=== PATIENT | female | born 1950 | race Caucasian/White ===

== ENCOUNTER 2017-01-07 16:03 | Emergency (ER) | payer OTHER ==
[~2017-01-07] VITALS: Wt 81.5 kg
[~2017-01-07 16:03] MED LIST: ASPI81TA3 PO; BENAZEPRIL PO; METOPROLOL PO; OMEPRAZOLE PO; SIMVASTATIN PO; SYNTHROID PO
[2017-01-07] MEDS ORDERED: AMOXICILLIN/CLAV 875 MG TAB PO ONE (16:30)
[2017-01-07] MEDS ORDERED: DIPHTH/TET/ACEL PERTUSS (ADULT) 0.5 ML VIAL IM* ONE (16:30)
--- NOTE | 2017-01-07 16:31 | ERD ---
ER Documentation Chief Complaint Date/Time DATE: 01/07/17 TIME: 16:29 Chief Complaint left hand swelling from dog bite yesterday with redness. no drainage noted HPI 66-year-old female who is right-hand dominant comes in with a left hand dog bite that occurred yesterday. Patient states that it she was on the history and it was a trauma that had bitten her on the back of her hand. She states that there is more swelling and redness today. She did wash the area with soap. Patient reports that her last tetanus shot was about 6 years ago. She has no difficulty with movement of the hand, she denies paresthesias. She denies fevers or chills. ROS All systems reviewed and are negative except as per history of present illness. Medications Home Meds Active Scripts Ibuprofen* (Motrin*) 600 Mg Tab, 600 MG PO Q6, #30 TAB Prov:YOVANY LEYVA PA-C 01/07/17 Amoxicillin/Potassium Clav (Amox-Clav 875-125 mg Tablet) 875-125 mg Tab, 1 TAB PO BID for 7 Days, #14 TAB Prov:YOVANY LEYVA PA-C 01/07/17 Reported Medications Aspirin (Aspirin) 81 Mg Chew, 81 MG PO DAILY, TAB.CHEW 12/01/13 [Omeprazole] No Conflict Check, PO DAILY 12/01/13 [Synthroid] No Conflict Check, PO DAILY 12/01/13 [Simvastatin] No Conflict Check, PO DAILY 12/01/13 [Benazepril] No Conflict Check, PO DAILY 12/01/13 [Metoprolol] No Conflict Check, PO DAILY 12/01/13 Allergies Allergies: Coded Allergies: diazepam (Unverified Allergy, Unknown, HIVES,SCRATCHY THROAT, 01/07/17) meperidine (Unverified Allergy, Unknown, HIVES,SCRATCHY THROAT, 01/07/17) PMhx/Soc History of Surgery: Yes (HYSTERECTOMY,BILAT KNEE REPLACEMENT,APPENDECTOMY) Anesthesia Reaction: No Hx Neurological Disorder: No Hx Respiratory Disorders: Yes (>15 YRS AGO ASTHMA ATTACK FROM COLD) Hx Cardiac Disorders: Yes (HTN, HIGH CHOLESTEROL ) Hx Psychiatric Problems: No Hx Miscellaneous Medical Probl: No Hx Alcohol Use: No Hx Substance Use: No Hx Tobacco Use: Yes (QUIT IN 1981) Smoking Status: Former smoker Physical Exam Vitals Vital Signs Date Time Temp Pulse Resp B/P Pulse Ox O2 Delivery O2 Flow Rate FiO2 01/07/17 16:06 98.7 74 21 157/67 99 Physical Exam General: Well-developed, well-nourished. The patient appears in no acute distress. HEENT: Head is normocephalic, atraumatic. No scleral icterus. Neck: Supple. Nontender. Lungs: Clear to auscultation. Normal air movement. Heart: Regular rate and rhythm. S1 and S2 are normal. No murmurs, gallops, or rubs. Abdomen: Nondistended. Extremities: Left dorsum of the hand has 2 dog bite wounds, there is superficial , small approximately 3-4 mm each, there is one just lateral to the third metacarpal, and one on the proximal aspect of the back of the hand. There is swelling, erythema, no fluctuance. Patient is able to make a fist. Neurologic: Alert and oriented 3. No focal deficits. Normal speech and gait. Skin: Normal turgor. No rash or lesions. Results 24 hrs Current Medications Medications (Trade) Dose Ordered Sig/Surya Route PRN Reason Start Time Stop Time Status Last Admin Dose Admin Diphtheria/ Tetanus/Acell Pertussis (Adacel) 0.5 ml ONCE ONCE IM* 01/07/17 16:30 01/07/17 16:31 DC 01/07/17 16:31 Amoxicillin/ Clavulanate Potassium (Augmentin) 875 mg ONCE ONCE PO 01/07/17 16:30 01/07/17 16:31 DC 01/07/17 17:15 DIAGNOSTIC IMAGING REPORT Patient: ANDREW SHEPHERD : 1950 Age: 66 Sex: F MR #: [id number] DOS: 01/07/17 1624 Ordering MD: YOVANY LEYVA PA-C Location: [facility] Room/Bed: PROCEDURE: Left hand series CLINICAL INDICATION: Left hand pain after trauma TECHNIQUE: Three views of the left hand were obtained. COMPARISON: No prior studies are available for comparison. FINDINGS: There is normal mineralization and alignment of the bones of the left hand. There is no evidence of acute fracture or dislocation. There are severe degenerative changes of the distal and proximal interphalangeal joints. There is severe degenerative change of the first carpal metacarpal joint. There is soft tissue swelling at these joints.. The soft tissues are within normal limits. IMPRESSION: 1. No evidence of acute fracture or dislocation. 2. Severe degenerative changes of the left hand in a distribution compatible with osteoarthritis.. RPTAT: HJBF .Ronny Quinones MD, MD Date Time Electronically viewed and signed by .Ronny Quinones MD, MD on 2016 17:08 .B/ CC: YOVANY LEVYA PA-C Procedures/MDM ED course: Patient was given Augmentin 875 p.o., Tdap was updated. MDM: 58-year-old female comes in with a dog bite to the left hand that occurred yesterday. There is evidence of redness and swelling to the dorsum of the hand at the site of the dog bite. Given her history of dog bite, cannot rule out early infection. She was given her first dose of Augmentin in the emergency department will be continued at home and x-ray of the hand was unremarkable, there is no evidence of fracture. Departure Diagnosis: Primary Impression: Dog bite Condition: Good YOVANY LEYVA PA-C Jan 07, 2017 16:31
--- NOTE | 2017-01-07 17:08 | RADRPT ---
PROCEDURE: Left hand series CLINICAL INDICATION: Left hand pain after trauma TECHNIQUE: Three views of the left hand were obtained. COMPARISON: No prior studies are available for comparison. FINDINGS: There is normal mineralization and alignment of the bones of the left hand. There is no evidence of acute fracture or dislocation. There are severe degenerative changes of the distal and proximal in terphalangeal joints. There is severe degenerative change of the first carpal metacarpal joint. Th ere is soft tissue swelling at these joints.. The soft tissues are within normal limits. IMPRESSION: 1. No evidence of acute fracture or dislocation. 2. Severe degenerative changes of the left hand in a distribution compatible with osteoarthritis.. RPTAT: HJBF .Ronny Quinones MD, Date Time Electronically viewed and signed by .Ronny Quinones MD, on 01/07/2017 17:08 .B/
[2017-01-07] MEDS ORDERED: AMOX1TAB10 PO (17:23)
[2017-01-07] MEDS ORDERED: IBUP-1542 PO (17:23)
== END 2017-01-07 17:31 | disposition home or self-care (01) ==
LOC: FTE 16:28
DX: S61.452A Open bite of left hand, initial encounter (principal); I10 Essential (primary) hypertension; W54.0XXA Bitten by dog, initial encounter; Y92.9 Unspecified place or not applicable; Z23 Encounter for immunization; Z79.82 Long term (current) use of aspirin; Z87.891 Personal history of nicotine dependence; Z96.653 Presence of artificial knee joint, bilateral
CPT/HCPCS: 90471; 90715

== ENCOUNTER 2017-01-09 12:17 | Emergency (ER) | payer OTHER ==
[~2017-01-09] VITALS: Ht 152.4 cm; Wt 81.0 kg
[~2017-01-09 12:17] MED LIST changes: +AMOX1TAB10 PO; +IBUP-1542 PO
[2017-01-09 12:28] VITALS: Ht 152.4 cm; Wt 81.0 kg
--- NOTE | 2017-01-09 12:54 | ERD ---
ER Documentation Chief Complaint Date/Time DATE: 01/09/17 TIME: 12:51 Chief Complaint 2 day wound check left hand dog bite HPI This is a 58-year-old female who presents to the emergency department today for a wound check of a dog bite that she sustained a couple of days ago. Patient states she has been taking her antibiotics. Denies any fevers or chills or significant pain. ROS All systems reviewed and are negative except as per history of present illness. Medications Home Meds Active Scripts Ibuprofen* (Motrin*) 600 Mg Tab, 600 MG PO Q6, #30 TAB Prov:YOVANY LEYVA PA-C 01/07/17 Amoxicillin/Potassium Clav (Amox-Clav 875-125 mg Tablet) 875-125 mg Tab, 1 TAB PO BID for 7 Days, #14 TAB Prov:YOVANY LEYVA PA-C 01/07/17 Reported Medications Aspirin (Aspirin) 81 Mg Chew, 81 MG PO DAILY, TAB.CHEW 12/01/13 [Omeprazole] No Conflict Check, PO DAILY 12/01/13 [Synthroid] No Conflict Check, PO DAILY 12/01/13 [Simvastatin] No Conflict Check, PO DAILY 12/01/13 [Benazepril] No Conflict Check, PO DAILY 12/01/13 [Metoprolol] No Conflict Check, PO DAILY 12/01/13 Allergies Allergies: Coded Allergies: diazepam (Unverified Allergy, Unknown, HIVES,SCRATCHY THROAT, 01/07/17) meperidine (Unverified Allergy, Unknown, HIVES,SCRATCHY THROAT, 01/07/17) PMhx/Soc History of Surgery: Yes (HYSTERECTOMY,BILAT KNEE REPLACEMENT,APPENDECTOMY) Anesthesia Reaction: No Hx Neurological Disorder: No Hx Respiratory Disorders: Yes (>15 YRS AGO ASTHMA ATTACK FROM COLD) Hx Cardiac Disorders: Yes (HTN, HIGH CHOLESTEROL ) Hx Psychiatric Problems: No Hx Miscellaneous Medical Probl: No Hx Alcohol Use: No Hx Substance Use: No Hx Tobacco Use: Yes (QUIT IN 1981) Smoking Status: Former smoker Physical Exam Vitals Vital Signs Date Time Temp Pulse Resp B/P Pulse Ox O2 Delivery O2 Flow Rate FiO2 01/09/17 12:28 98.7 68 18 123/57 96 Physical Exam Const: No acute distress Head: Atraumatic Eyes: Normal Conjunctiva ENT: Normal External Ears, Nose and Mouth. Neck: Full range of motion..~ No meningismus. Resp: Clear to auscultation bilaterally Cardio: Regular rate and rhythm, no murmurs Skin: 2 small superficial lacerations left hand with no erythema or warmth. Back: No midline or flank tenderness Ext: 2 small superficial lacerations left hand with no erythema or warmth. No purulent drainage. No effusion. Full active range of motion fingers and wrist. Pulses 2+. Distal neurovascularly intact. Neur: Awake and alert Psych: Normal Mood and Affect Procedures/MDM This a 66-year-old female who presents the emergency department today with her daughter for a wound check of a dog bite that she sustained by her own family dog a couple of days ago. Patient is afebrile and otherwise well-appearing. She has 2 very small lacerations on the dorsal aspect of her left hand. There is no erythema or warmth or purulent drainage. Patient does have some swelling in her fingers however she also has Heberden's nodes and has evidence of arthritis. Patient has full active range of motion at her wrist and fingers and I have low suspicion for sepsis or deep space infection or tenosynovitis.. Patient was instructed to continue taking her antibiotics as prescribed. She was updated on her tetanus on her last visit At this time the patient is stable for discharge and outpatient management. Patient should follow up with their PCP in the next 1-2 days. They may return to the emergency department sooner for any persistent or worsening of symptoms. Patient understood and agreed with the plan. Departure Diagnosis: Primary Impression: Encounter for wound re-check Condition: Fair Patient Instructions: Wound Care Referrals: KINGSLEY SPRINGER (PCP) Additional Instructions: Llame al doctor CURTIS y taqueria dashawn BLANCHE PARA DENTRO DE 1-2 DEXTRE.Dgale a la secretaria que nosotros le instruimos hacer esta blanche.Avise o llame si green condicin se empeora antes de la blanche. Regresa aqui si peor o no mejor. Continue taking antibiotics as prescribed and keep wound clean and dry JACKSON GARCIA PA-C Jan 09, 2017 12:54
== END 2017-01-09 13:19 | disposition home or self-care (01) ==
LOC: FTE 12:17
DX: Z48.01 Encounter for change or removal of surgical wound dressing (principal); I10 Essential (primary) hypertension; J45.909 Unspecified asthma, uncomplicated; Z79.82 Long term (current) use of aspirin; Z87.891 Personal history of nicotine dependence; Z96.651 Presence of right artificial knee joint; Z96.652 Presence of left artificial knee joint
CPT/HCPCS: 99281

== ENCOUNTER 2017-10-16 18:46 | Emergency (ER) | END 2017-10-17 01:48 | disposition home or self-care (01) ==